=== PATIENT | female | born 1965 | race Caucasian/White ===

== ENCOUNTER 2020-04-27 07:45 | Outpatient (CLI) | payer BC, SELFPAY ==
--- NOTE | ~2020-04-27 | MM_ITS ---
EXAMINATION: MM screening fadia BI w andrew HISTORY: Screening TECHNIQUE: Craniocaudal and mediolateral oblique 3-D tomosynthesis images were obtained and synthetic 2-D images were generated. CAD analysis was submitted and interpreted. COMPARISON: Comparison to multiple prior studies sequentially, with oldest reviewed study dated 11/25. BREAST PARENCHYMAL COMPOSITION: There are scattered areas of fibroglandular density. FINDINGS: There is no evidence of suspicious mass, calcification, or architectural distortion to sugg est malignancy in either breast. There has been no suspicious interval change. IMPRESSION: 1. No mammographic evidence of malignancy. 2. Recommend routine screening mammography in one year. BI-RADS Category 1: Negative Reviewed, dictated and finalized at location A. 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
== END 2020-04-27 07:46 | disposition home or self-care (01) ==
PROVIDERS: PCP Family Medicine; Visit Provider Obstetrics & Gynecology
DX: Z12.31 Encounter for screening mammogram for malignant neoplasm of breast (principal)
CPT/HCPCS: 77063; 77067

== ENCOUNTER 2020-08-02 10:21 | Emergency (ER) | payer BC, SELFPAY ==
[2020-08-02 10:29] VITALS: BP 148/84; PULSE 70; RESP 12; TEMP 36.7; O2SAT 99
--- NOTE | 2020-08-02 10:46 | ED.SKABFB ---
HPI - Skin/Abscess/Foreign Bdy General Chief complaint: Skin/Abscess/Foreign Body Stated complaint: Rash on face Source: patient and RN notes reviewed Limitations: no limitations History of Present Illness HPI narrative: The obese patient, previously mostly healthy, presents with skin eruption. Patient states she has a shorter 5-day history of pimply eruptions her right chin. Symptoms are mild, worse with scratching, unrelieved with OTC Benadryl. No fever, abscess/induration, streaking prior/other rashes currently. Related Data Home Medications Medication Instructions Recorded Confirmed clobetasol TOPICAL 08/02/20 Allergies Allergy/AdvReac Type Severity Reaction Status Date / Time No Known Allergies Verified 05/19/10 07:06 Review of Systems Review of Systems: Narrative: General/Constitutional: No weight loss,fever Eyes: N0: Redness,discharge Ears/Nose/Throat: No: Epistaxis,ear discharge Respiratory: Denies: Hemoptysis Gastrointestinal: No Vomiting, Bleeding-rectal Skin: No Lumps, REPORTS eruption Neurologic: No Focal Weakness,Sz Hematologic: Denies: Petechiae/Purpura Psychiatric: No: Suicida ideationl All Other Systems: Reviewed and Negative [facility] Past Medical History Medical History (Updated 08/02/20 @ 10:48 by Bernardo Montiel MD) Cholecystectomy planned Thyroid disease Surgical History Surgical History History of appendectomy Family History Family History Mother Family history of gallbladder disease Family history of chronic obstructive pulmonary disease Family history of diabetes mellitus in first degree relative Family history of throat cancer Family history of thyroid disease Asthma Father Family history of diabetes mellitus in first degree relative Acute myocardial infarction Sibling Family history of thyroid disease Asthma Social History Social History Smoking status: Former smoker Smoking end date: 02/25/91 Alcohol intake: never Comments At time of signature, agree with nursing past medical, surgical, social and family history. There is no relevant family history pertinent to the presenting complaint Exam Narrative: Exam Narrative: General Appearance: Well appearing, No distress, Conjunctiva clear Mouth/Throat: Normal appearing, Normal lips, Supple Skin: Warm, Dry, discrete papulovesicular eruption on the right cheek Respiratory: Airway patent, No respiratory distress Musculoskeletal: Full ROM Neurological: A&O x3, CN II-X intact Psychiatric: Normal mood, Normal affect Course Vital Signs Vital signs: Vital Signs Temperature 98.0 F 08/02/20 10:29 Pulse Rate 70 08/02/20 10:29 Respiratory Rate 12 08/02/20 10:29 Blood Pressure 148/84 H 08/02/20 10:29 Pulse Oximetry 99 08/02/20 10:29 Temperature 98.0 F 08/02/20 10:29 Pulse Rate 70 08/02/20 10:29 Respiratory Rate 12 08/02/20 10:29 Blood Pressure 148/84 H 08/02/20 10:29 Pulse Oximetry 99 08/02/20 10:29 Discharge Plan Discharge Clinical Impression: Folliculitis Patient Disposition: Home, Self-Care Condition: Stable Instructions: Antibiotic Form, Folliculitis (ED) Additional Instructions: Keep photo log of area, return if worsens Take clindamycin with food, stop if diarrhea occurs Prescriptions: New clindamycin HCl 300 mg capsule 300 mg PO TID Qty: 21 RF: 0 mupirocin 2 % ointment 1 applic TOPICAL TID Qty: 30 RF: 0 No Action clobetasol 0.05 % solution TOPICAL RF: 0 levothyroxine [Synthroid] 125 mcg tablet 125 mcg PO DAILY Qty: 90 RF: 1 liothyronine [Cytomel] 5 mcg tablet 5 mcg PO DAILY Qty: 90 RF: 1 Follow-up/Referrals: Shabbir Harding MD [Primary Care Provider] -
== END 2020-08-02 10:50 | disposition home or self-care (01) ==
PROVIDERS: Emergency Provider Emergency Medicine; PCP Family Medicine
DX: L73.9 Follicular disorder, unspecified (principal); Z87.891 Personal history of nicotine dependence; E03.9 Hypothyroidism, unspecified
CPT/HCPCS: 99213; G0463

== ENCOUNTER 2020-12-31 11:55 | Emergency (ER) | payer BC, SELFPAY ==
[2020-12-31 12:08] VITALS: BP 158/89; PULSE 65; RESP 16; TEMP 36.3; O2SAT 99
--- NOTE | 2020-12-31 12:38 | ED.EXTPRO ---
HPI - Extremity Problem General Chief complaint: Extremity Problem,Nontraumatic Stated complaint: WOUND TO R LEG Time Seen by Provider: 12/31/20 12:36 Source: patient and RN notes reviewed Mode of arrival: ambulatory Limitations: no limitations History of Present Illness HPI Narrative: 55-year-old female presents concern for a red, itchy area on her right lower leg. She is not sure when it started, reports it worsened with itching today. Reports she recently had cellulitis on her face, was concerned for cellulitis on her leg. She reports she has been driving [place] the [place] in [place] [employer] and so her legs have been in a dependent position and have had intermittent bilateral lower leg edema. She denies any new calf pain, redness, swelling. Reports she has a large painful varicose vein in the right leg and recently had work-up for DVT which was negative. Reports she used cortisone cream 1 time on the area. MD Complaint: extremity swelling Related Data Allergies Allergy/AdvReac Type Severity Reaction Status Date / Time No Known Allergies Verified 12/31/20 12:09 Review of Systems Review of Systems: CONSTITUTIONAL: Denies malaise, chills, sweats, or fever. CARDIOVASCULAR: Denies chest pain, palpitations, or edema. RESPIRATORY: Denies cough or dyspnea. SKIN: Reports red, itchy patch of skin on the right lower leg MUSCULOSKELETAL: Denies musculoskeletal pain or myalgia. All systems reviewed & are unremarkable except as noted in HPI and below PMFSH Past Medical History Medical History (Updated 12/31/20 @ 12:45 by Ara Rice NP) Cholecystectomy planned Thyroid disease Surgical History Surgical History History of appendectomy Family History Family History Mother Family history of gallbladder disease Family history of chronic obstructive pulmonary disease Family history of diabetes mellitus in first degree relative Family history of throat cancer Family history of thyroid disease Asthma Father Family history of diabetes mellitus in first degree relative Acute myocardial infarction Sibling Family history of thyroid disease Asthma Social History Social History Smoking status: Former smoker Smoking end date: 02/25/91 Alcohol intake: never Comments At time of signature, agree with nursing past medical, surgical, social and family history. There is no relevant family history pertinent to the presenting complaint Exam Narrative: GENERAL: Well-appearing, well-nourished, and in no acute distress. HEAD: Normocephalic, atraumatic. EYES: PERRLA, conjunctivae clear, and EOMI. ENT: Mucous membranes moist. Oropharynx without edema, erythema or lesions. NECK: Supple. No lymphadenopathy CHEST: Clear to auscultation. No respiratory distress. HEART: Regular rate and rhythm. SKIN: Warm, dry. 7cm x 4cm patch of erythematous plaque, nontender without induration, no open skin, no drainage NEURO: Alert and oriented x3. PSYCH: Normal mood and affect Course Course Emergency Course: Patient is aware of diagnosis, understands and agrees to treatment plan. Anticipatory guidance given. Patient agrees to follow-up as directed and is aware of reasons to seek care at the emergency department. Portions of this record may have been created with voice recognition software Vital Signs Vital signs: Vital Signs Temperature 97.4 F L 12/31/20 12:08 Pulse Rate 65 12/31/20 12:08 Respiratory Rate 16 12/31/20 12:08 Blood Pressure 158/89 H 12/31/20 12:08 Pulse Oximetry 99 12/31/20 12:08 Temperature 97.4 F L 12/31/20 12:08 Pulse Rate 65 12/31/20 12:08 Respiratory Rate 16 12/31/20 12:08 Blood Pressure 158/89 H 12/31/20 12:08 Pulse Oximetry 99 12/31/20 12:08 Reviewed. MDM - Extremity (Nontraumatic) MDM Narrative Medical dec
== END 2020-12-31 12:51 | disposition home or self-care (01) ==
PROVIDERS: Emergency Provider Nurse Practitioner; PCP Family Medicine
DX: B35.4 Tinea corporis (principal); Z87.891 Personal history of nicotine dependence; E07.9 Disorder of thyroid, unspecified
CPT/HCPCS: 99213; G0463

== ENCOUNTER 2021-06-13 07:48 | Outpatient (CLI) | payer BC, SELFPAY ==
--- NOTE | ~2021-06-13 | MM_ITS ---
EXAMINATION: MM screening fadia BI w andrew HISTORY: Screening mammogram TECHNIQUE: Craniocaudal and mediolateral oblique 3-D tomosynthesis images were obtained and synthetic 2-D images were generated. CAD analysis was submitted and interpreted. COMPARISON: 05/14/2020, bilateral screening mammogram examinations BREAST PARENCHYMAL COMPOSITION: The breasts are almost entirely fatty. FINDINGS: There is no evidence of suspicious mass, calcification, or architectural distortion to sugg est malignancy in either breast. There has been no suspicious interval change. IMPRESSION: 1. No mammographic evidence of malignancy. 2. Recommend routine screening mammography in one year. BI-RADS Category 1: Negative Reviewed, dictated and finalized at location A.
== END 2021-06-13 07:49 | disposition home or self-care (01) ==
PROVIDERS: PCP Family Medicine; Visit Provider Obstetrics & Gynecology
DX: Z12.31 Encounter for screening mammogram for malignant neoplasm of breast (principal)
CPT/HCPCS: 77063; 77067

== ENCOUNTER 2021-11-13 01:32 | Day surgery (SDC) | payer BC, SELFPAY ==
[2021-10-26 13:49] VITALS: BMI 47.7
--- NOTE | 2021-11-10 14:35 | PM.HPGS ---
History of Present Illness History of Present Illness Consent: Risks, benefits, and alternatives have been discussed and questions answered. Patient agrees to proceed with procedure. Chief complaint: neoplasm screening Narrative: Abimbola Gómez is a 56 year old female Referred for colon cancer screening. Review of Systems Review of Systems: All systems reviewed & are unremarkable except as noted in HPI and below PMFSH Past Medical History Medical History Cholecystectomy planned Thyroid disease Surgical History Surgical History History of appendectomy Family History Family History Mother Family history of gallbladder disease Family history of chronic obstructive pulmonary disease Family history of diabetes mellitus in first degree relative Family history of throat cancer Family history of thyroid disease Asthma Father Family history of diabetes mellitus in first degree relative Acute myocardial infarction Sibling Family history of thyroid disease Asthma Social History Social History Smoking packs per day: 1 Smoking cigarettes per day: 20.0 Years smoked: 10 Smoking pack-years: 10.00 Smoking status: Former smoker Tobacco type: cigarettes Second hand tobacco smoke exposure: No Smoking end date: 02/25/91 Alcohol intake: never Substance use: never Substance use type: does not use Living arrangements: with family Gender identity (if verbalized by the patient): Female Sexual Orientation (if Verbalized by the Patient): Straight or Heterosexual Spiritual care concerns: No Meds Home Medications and Allergies Home Medications Medication Instructions Recorded Confirmed Type clotrimazole-betamethasone 1 1 applic topical BID 4 weeks #45 12/31/20 10/26/21 Rx %-0.05 % topical cream grams liothyronine 5 mcg tablet (Cytomel) 5 mcg PO DAILY #90 tabs 06/05/21 10/26/21 Rx levothyroxine 112 mcg tablet 112 mcg PO DAILY 90 days #90 tabs 06/28/21 10/26/21 Rx Allergies Allergy/AdvReac Type Severity Reaction Status Date / Time No Known Allergies Verified 11/13/21 09:54 Exam Const: General: alert Nutritional Appearance: obese Orientation/consciousness: patient oriented x3 Resp: Auscultation: clear to auscultation bilaterally Cardio: Rhythm: regular rhythm GI: Inspection: obesity GI Palp: Yes Soft to palpation and No Tenderness to palpation present (GI) Neuro: General: patient oriented x3 Assessment and Plan Assessment and plan (1) Colon cancer screening: Code(s): Z12.11 - Encounter for screening for malignant neoplasm of colon Status: Acute Assessment and Plan: Colonoscopy with possible biopsy or polypectomy or cautery or injection of substances.
[2021-11-13 09:55] VITALS: BP 140/97; PULSE 82; RESP 22; TEMP 36.3; O2SAT 97; BMI 45.2
[2021-11-13] MEDS: LACTATED RINGERS 1,000 ML 150 ML IV CONT (09:58)
--- NOTE | 2021-11-13 10:42 | WPDANESEPPF ---
Anes - Initial Pre Proc Eval Procedure: Operation Date: 11/13/21 11:00 Proposed Procedures p Screening Colonoscopy - Matty Kraus MD Date/Time: 11/13/21 10:42 Surgeon: Matty Kraus MD Pre Op Diagnosis: neoplasm screening Patient Data Age: 56 Gender: F Height: 1.68 m Weight: 127.2 kg Last Vital Signs Temp 97.4 F L 11/13/21 09:55 Pulse 82 11/13/21 09:55 Resp 22 H 11/13/21 09:55 BP 140/97 H 11/13/21 09:55 Pulse Ox 97 11/13/21 09:55 O2 Del Method Room Air 11/13/21 09:55 Allergies Allergy/AdvReac Type Severity Reaction Status Date / Time No Known Allergies Verified 11/13/21 09:54 Home Medications Medication Instructions Recorded Confirmed Type clotrimazole-betamethasone 1 1 applic topical BID 4 weeks #45 12/31/20 10/26/21 Rx %-0.05 % topical cream grams liothyronine 5 mcg tablet (Cytomel) 5 mcg PO DAILY #90 tabs 06/05/21 10/26/21 Rx levothyroxine 112 mcg tablet 112 mcg PO DAILY 90 days #90 tabs 06/28/21 10/26/21 Rx Patient hx anesthesia problems: none Family hx anesthesia problems: none Results Review: All pre-operative results and documents have been reviewed as part of the pre-operative evaluation. [facility] Past Medical History Medical History Cholecystectomy planned Thyroid disease Surgical History Surgical History History of appendectomy Family History Family History Mother Family history of gallbladder disease Family history of chronic obstructive pulmonary disease Family history of diabetes mellitus in first degree relative Family history of throat cancer Family history of thyroid disease Asthma Father Family history of diabetes mellitus in first degree relative Acute myocardial infarction Sibling Family history of thyroid disease Asthma Social History Social History Smoking packs per day: 1 Smoking cigarettes per day: 20.0 Years smoked: 10 Smoking pack-years: 10.00 Smoking status: Former smoker Tobacco type: cigarettes Second hand tobacco smoke exposure: No Smoking end date: 02/25/91 Alcohol intake: never Substance use: never Substance use type: does not use Living arrangements: with family Gender identity (if verbalized by the patient): Female Sexual Orientation (if Verbalized by the Patient): Straight or Heterosexual Spiritual care concerns: No Anes - Eval Final PreProcedure Day of Procedure 11/13/21 10:42 Patient weight: morbidly obese Heart: regular rate and rhythm Lungs: clear to auscultation Airway: Mallampati scale class II Neurological: alert and oriented Last oral intake: >/= 8 hours ASA classification: III Emergent: no Anesthetic plan: proceed Anesthesia type and monitoring: general GIVS and standard monitoring Results Review: All pre-operative results and documents have been reviewed as part of the pre-operative evaluation. Informed Consent: The patient's anesthetic plan and its attendant risks and benefits were discussed with the patient/family/POA. Questions were solicited and answers provided to the satisfaction of the patient/family/POA.
[2021-11-13 11:11] VITALS: BP 127/76; PULSE 67; RESP 18; O2SAT 99
[2021-11-13 11:21] VITALS: BP 155/96; PULSE 59; RESP 15; O2SAT 98
[2021-11-13 11:31] VITALS: BP 167/96; PULSE 58; RESP 24; O2SAT 100
== END 2021-11-13 11:35 | disposition home or self-care (01) ==
PROVIDERS: PCP Family Medicine; Visit Provider Internal Medicine Gastroenterology
PROC: 0DJD8ZZ Inspection of Lower Intestinal Tract, Via Natural or Artificial Opening Endoscopic (ICD-10-PCS; CPT 45378; principal; 2021-11-13 11:00)
DX: Z12.11 Encounter for screening for malignant neoplasm of colon (principal); E03.9 Hypothyroidism, unspecified; Z87.891 Personal history of nicotine dependence; E66.01 Morbid (severe) obesity due to excess calories; Z68.42 Body mass index [BMI] 45.0-49.9, adult
CPT/HCPCS: 45378; J2704; J7120

== ENCOUNTER 2022-09-13 07:58 | Outpatient (CLI) | payer BC, SELFPAY ==
--- NOTE | ~2022-09-13 | MM_ITS ---
EXAMINATION: MM screening fadia BI w andrew HISTORY: Screening TECHNIQUE: Craniocaudal and mediolateral oblique 3-D tomosynthesis images were obtained and synthetic 2-D images were generated. CAD analysis was submitted and interpreted. COMPARISON: Comparison to multiple prior studies sequentially, with oldest reviewed study dated 06/07. BREAST PARENCHYMAL COMPOSITION: The breasts are almost entirely fatty. FINDINGS: There is no evidence of suspicious mass, calcification, or architectural distortion to sugg est malignancy in either breast. There has been no suspicious interval change. IMPRESSION: 1. No mammographic evidence of malignancy. 2. Recommend routine screening mammography in one year. BI-RADS Category 1: Negative Reviewed, dictated and finalized at location A.
== END 2022-09-13 07:59 | disposition home or self-care (01) ==
PROVIDERS: PCP Family Medicine; Visit Provider Obstetrics & Gynecology
DX: Z12.31 Encounter for screening mammogram for malignant neoplasm of breast (principal)
CPT/HCPCS: 77063; 77067

== ENCOUNTER 2023-05-01 15:33 | Outpatient (CLI) | payer BC, SELFPAY ==
--- NOTE | ~2023-05-01 | US_ITS ---
EXAMINATION: US thyroid DATE: 05/01/2023 16:27 INDICATION: Dysphagia, unspecified. Hypothyroidism. TECHNIQUE: Multiple ultrasound images of the thyroid were obtained. COMPARISON: None. FINDINGS: The right thyroid lobe measures 4.8 x 1.6 x 1.6 cm. The left thyroid lobe measures 3.6 x 1.2 x 1.3 c m. The thyroid demonstrates heterogeneous hypoechogenicity. Vascularity is increased. In the left th yroid lobe, there is a 10 mm solid, hyperechoic, wider than tall nodule with ill-defined margin witho ut echogenic foci (TI-RADS TR3). IMPRESSION: 1. Heterogeneous, hypervascular thyroid, likely chronic lymphocytic (Siomara) thyroiditis. 2. Small thyroid nodule, likely not clinically significant. No follow-up is needed. Reviewed, dictated and finalized at location E. NNER IMPRESSION: 1. Heterogeneous, hypervascular thyroid, likely chronic lymphocytic (Siomara) thyroiditis. 2. Small thyroid nodule, likely not clinically significant. No follow-up is nee ded.
== END 2023-05-01 15:34 | disposition home or self-care (01) ==
PROVIDERS: PCP Family Medicine; Visit Provider Nurse Practitioner Family
DX: R13.10 Dysphagia, unspecified (principal)
CPT/HCPCS: 76536

== ENCOUNTER 2023-09-16 07:20 | Outpatient (CLI) | payer BC, SELFPAY ==
--- NOTE | ~2023-09-16 | MM_ITS ---
EXAMINATION: MM screening fadia BI w andrew HISTORY: Screening TECHNIQUE: Craniocaudal and mediolateral oblique 3-D tomosynthesis images were obtained and synthetic 2-D images were generated. CAD analysis was submitted and interpreted. COMPARISON: Comparison to multiple prior studies sequentially, with oldest reviewed study dated 06/07. BREAST PARENCHYMAL COMPOSITION: Not Dense: Breast are almost entirely fatty. FINDINGS: There is no evidence of suspicious mass, calcification, or architectural distortion to sugg est malignancy in either breast. There has been no suspicious interval change. IMPRESSION: 1. No mammographic evidence of malignancy. 2. Recommend routine screening mammography in one year. BI-RADS Category 1: Negative Reviewed, dictated and finalized at location B.
== END 2023-09-16 07:21 | disposition home or self-care (01) ==
LOC: ANHIMG 07:24
PROVIDERS: PCP Family Medicine; Visit Provider Obstetrics & Gynecology
DX: Z12.31 Encounter for screening mammogram for malignant neoplasm of breast (principal)
CPT/HCPCS: 77063; 77067

== ENCOUNTER 2024-09-17 07:24 | Outpatient (CLI) | payer BC, SELFPAY ==
--- NOTE | ~2024-09-17 | MM_ITS ---
EXAMINATION: MM screening fadia BI w andrew HISTORY: Screening TECHNIQUE: Craniocaudal and mediolateral oblique 3-D tomosynthesis images were obtained and synthetic 2-D images were generated. CAD analysis was submitted and interpreted. COMPARISON: Comparison to multiple prior studies sequentially, with oldest reviewed study dated 06/07. BREAST PARENCHYMAL COMPOSITION: The breasts are almost entirely fatty. FINDINGS: There is no evidence of suspicious mass, calcification, or architectural distortion to sug gest malignancy in either breast. IMPRESSION: 1. No mammographic evidence of malignancy. 2. Recommend routine screening mammography in one year. BI-RADS Category 1: Negative Reviewed, dictated and finalized at location B.
--- OUTSIDE RECORDS SUMMARY | 2024-09-17 07:31 | XMS_ITS | Referral Summary ---
Author Organization [facility] [place] [facility] Address [address] [place] [address] Care Team Providers Care Solderer Production Line Name Role Phone Shabbir Harding MD Primary Care Provider Maurilio Domínguez MD Unavailable [phone] Allergies No known active allergies Medications levothyroxine (Synthroid) 125 mcg tablet Take 125 mcg by mouth daily 7 Active liothyronine (CYTOMEL) 5 mcg tablet Take 5 mcg by mouth daily 6 Active triamcinolone (KENALOG) 0.1 % cream Apply topically 2 (two) times a day 0 Active clobetasoL (TEMOVATE) 0.05 % external solution APPLY TO SCALP TWICE DAILY UP TO 4 WEEKS. DO NOT APPLY TO FACE GROIN OR ARMPITS. STOP FOR 2 WEEKS BEFORE RESTARTING. 1 Active Active Problems Problem Noted Date Diagnosed Date Varicose veins of right lower extremity with francisco n 04/21/2020 Assessment & Plan (04/27/2020 2:05 PM SALES REPRESENTATIVE TRAINEE): Patient has isolated varicosity right calf. No indication for further workup surgical intervention recommended continued exercise, weight loss, leg elevation and knee-high compression therapy. Follow-up with me on a p.r.n. basis Hypothyroidism 04/20/2020 Assessment & Plan (04/21/2020 8:55 AM SALES REPRESENTATIVE TRAINEE): Controlled. Continue current medical therapy Yeast infection 09/04/2019 Lichen sclerosus of female genitalia 10/29/2018 Resolved Problems Problem Noted Date Diagnosed Date Resolved Date Lichen sclerosus 04/20/2020 04/20/2020 Social History Tobacco Use Types Packs/Day Years Used Date Smoking Tobacco: Former Personal Safety Answer Date Recorded Getting School Help Needed Not on file 05/10 Comments Unknown Sex and Gender Information Value Date Recorded Sex Assigned at Not on file Legal Sex Female 7:24 AM SALES REPRESENTATIVE TRAINEE Gender Identity Not on file Sexual Orientation Not on file Last Filed Vital Signs Vital Sign Reading Time Taken Comments Blood Pressure 169/95 04/21/2020 8:25 AM SALES REPRESENTATIVE TRAINEE Pulse 60 04/21/2020 8:25 AM SALES REPRESENTATIVE TRAINEE Temperature - - Respiratory Rate - - Oxygen Saturation - - Inhaled Oxygen Concentration - - Weight 140.6 kg (310 lb) 04/21/2020 8:25 AM SALES REPRESENTATIVE TRAINEE Height 167.6 cm (5' 6) 04/21/2020 8:25 AM SALES REPRESENTATIVE TRAINEE Body Mass Index 50.04 04/21/2020 8:25 AM SALES REPRESENTATIVE TRAINEE Plan of Treatment Not on file Insurance [facility] Care Teams Solderer Production Line Relationship Specialty Start Date End Date Shabbir Harding MD [address] [place] [address] PCP - General Family Medicine 04/21/20 Maurilio Domínguez MD [address] [facility] [address] [place] [address] Consulting Physician Obstetrics and Gynecology 04/21/20
--- OUTSIDE RECORDS SUMMARY | 2024-09-17 07:31 | XMS_ITS | Encounter Summary ---
Author Organization [facility] Address [address] [place] [address] Care Team Providers Care Signal Maintainer Helper Name Role Phone Unavailable Primary Care Provider Unavailabl e Encounter Details Date Type Department Care Team (Latest Contact Info) Description 04/22/1998 Outpatient Historical [facility] Antonio Khan V., PhD [address] [place] [address] Intracranial injury of other and unspecified nature, without mention of open intracranial wound, brief (less than 1 hour) loss of consciousness (Primary Dx) Social History Tobacco Use Types Packs/Day Years Used Date Smoking Tobacco: Never Assessed Comments Unknown Sex and Gender Information Value Date Recorded Sex Assigned at Not on file Legal Sex Female 3:36 AM FIRST PRESS OPERATOR Gender Identity Not on file Sexual Orientation Not on file documented as of this encounter Plan of Treatment Not on file documented as of this encounter Visit Diagnoses Diagnosis Intracranial injury of other and unspecified nature, without mention of open intracranial wound, brief (less than 1 hour) loss of consciousness- Primary documented in this encounter
--- OUTSIDE RECORDS SUMMARY | 2024-09-17 07:31 | XMS_ITS | Continuity of Care Document ---
Author Organization [facility] Address [address] [place] [address] Phone Care Team Providers Care Supervisor Assembling Name Role Phone Jackson OD, Alejandro Unavailable Unavailable Procedures Procedure Date Contact Lens Check Contact Lens Check Contact Lens Check Eye Exam, New Patient Refraction Advance Directives Directive Yes / No Effective Date File Name No Information Encounters Encounter Description Practice Location Reason(s) For Visit Diagnoses Date Provider Providers Copied on Encounter [facility], [address] [place] [address] [address], [place], [place], [id number], tel:[phone] [facility] No Information Aug-3 0-201 0 Jackson OD Alejandro. [address], [place], [place], [facility], [place]. tel:[phone] [facility], [address] [place] [address] [address], [place], [place], [id number], tel:[phone] [facility] No Information Aug-2 3-201 0 Jackson OD Alejandro. [address], [place], [address], [place]. tel:[phone] [facility], [address] [place] [address] [address], [place], [place], [id number], tel:[phone] [facility] No Information Aug-0 2-201 0 Jackson OD Alejandro. [address], [place], [address], [place]. tel:[phone] [facility], [address], [place], [place], [id number], [place] tel:[phone] [facility] No Information 0-201 0 Jackson OD Alejandro. [address], [place], [address], [place]. tel:[phone] Family History Family Member Type Diagnosis Age At Onset No Information Payers Payer name Insurance type Covered democrat ID Authoriza tion(s) No Information Social History Type Description Quantity Date Captured Comments Sex Female Smoking Status No Information Chief Complaint And Reason For Visit No Information Reason For Referral Reason For Referral No Information History Of Present Illness Encounter Date Complaint History Of Prese nt Illness No Information Functional Status Date Functional Assessmen t No Information Instructions Date Instruction Additional Infor mation No Information Assessments Type Assessment Date No Information Patient Care Teams Name Effective Dates (start - stop) Status Members No Information
--- OUTSIDE RECORDS SUMMARY | 2024-09-17 07:31 | XMS_ITS | Clinical Summary ---
Author Organization [facility] Address [address] [place] [address] Care Team Providers Care Trench Digging Machine Operator Name Role Phone Shabbir Harding MD Primary Care Provider [phone] Maurilio Domínguez MD Unavailable Source Comments [facility],non-owned Affiliates and Associated Physician Practices is amultiple site organization consisting of ambulatory clinics and hospital sitesin [place], [place], [place] and [place]. This disclosure is being madepursuant to the Care Everywhere program and may not contain all information available regarding this patient. Last updated 17.[facility] Allergies No known active allergies Medications * Be aware that medications may not be up to date on this document. Alwaysverify current medications with the patient. liothyronine (CYTOMEL) 5 MCG tablet Take 1 (one) tablet by mouth once daily 02/25/2016 Active nystatin-triamc inolone (MYCOLOG) 148730-3.1 UNIT/GM-% cream 11/30/2018 Act andrez levothyroxine (Synthroid) 112 MCG tablet 12/11/2022 Active triamcinolone acetonide (Kenalog) 0.1 % creamIndication s:Lichen sclerosus of female genitalia Apply to affected area 2 times daily 80 g 3 01/02/2024 Active Active Problems Problem Noted Date Diagnosed Date Yeast infection 09/04/2019 Lichen sclerosus of female genitalia 10/29/2018 Encounters Date Type Department Care Team Description 08/24/2024 2:00 PM CDT Office Visit [facility] - BAND 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 [address] Maurilio Domínguez MD Lichen sclerosus of female genitalia (Primary Dx); Yeast infection from Last 3 Months Family History Medical History Relation Name Comments Cancer - Ovarian Maternal Aunt Relation Name Status Comments Maternal Aunt Social History Tobacco Use Types Packs/Day Years Used Date Smoking Tobacco: Former Smokeless Tobacco: Never Tobacco Cessation:Counseling Given: Not Answered Alcohol Use Standard Drinks/Week Comments Yes 0 (1 standard drink = 0.6 oz pur e alcohol) rare PHQ-2 Answer Date Recorded Patient Health Questionnaire-2 Score 0 08/19/2024 Comments No Sex and Gender Information Value Date Recorded Sex Assigned at Not on file Legal Sex Female 6:56 AM FISH GRADER Gender Identity Not on file Sexual Orientation Not on file Last Filed Vital Signs Vital Sign Reading Time Taken Comments Blood Pressure 132/80 08/24/2024 1:52 PM CDT Pulse - - Temperature - - Respiratory Rate - - Oxygen Saturation - - Inhaled Oxygen Concentration - - Weight 143.3 kg (316 lb) 08/24/2024 1:52 PM CDT Height 165.1 cm (5' 5) 08/24/2024 1:52 PM CDT Body Mass Index 52.59 08/24/2024 1:52 PM CDT Plan of Treatment Upcoming Encounters Date Type Department Care Team (Late st Contact Info) Description 02/23/2025 1:00 PM FISH GRADER Office Visit [facility] - [facility] [address] [place] [phone] Maurilio Domínguez MD [address] [place] [phone] Health Maintenance Due Date Last Done Comments COLOGUARD (AGES 45-75) - COLON CA SCREENING 1964 COLON MONITORING 1964 COLONOSCOPY - COLON CA SCREENING 1964 CT COLONOGRAPHY - COLON CA SCREENING 1964 Colorectal Cancer Screening 1964 FIT - COLON CA SCREENING 1964 FLEX SIG - COLON CA SCREENING 1964 LIPID TESTING 1964 HIV SCREENING 01/20/1979 HEPATITIS C SCREENING 01/16/1982 DTAP/TDAP/TD VACCINES (1 - Tdap) 01/20/1983 PNEUMOCOCCAL VACCINE 50+ (1 of 1 - PCV) 01/20/2014 ZOSTER VACCINE (1 of 2) 01/20/2014 SCREENING FOR DIABETES 06/14/2017 COVID-19 VACCINE (1 - 2023- season) 2023 Respiratory Syncytial Virus (RSV) Vaccine Pt: or over 60 yrs (1 - Risk 60-74 years 1-dose series) 2024 INFLUENZA VACCINE (#1) 2024 MAMMOGRAM 09/15/2025 09/16/2023, 08/26, 06/13/2021, Additional history exists PAP with HPV 01/01/2029 01/02/2024, 11/25, 11/23/2021, Additional history exists DEPRESSION SCREENING Completed 08/24/2024, 06/11/2023, 06/06/2022, Additional history exists HEPATITIS B VACCINE Aged Out No longe r eligible based on patient's age to complete this topic HIB VACCINE Aged Out No longer eligi ble based on patient's age to complete this topic HPV VACCINE Aged Out No longer eligi ble based on patient's age to complete this topic MENINGOCOCCAL (Group B) VACCINE SHARED DECISION-MAKING Aged Out No longer eligible based on patient's age to complete this topic MENINGOCOCCAL GROUPS A/C/Y/W VACCINE Aged Out No longer eligible based on patient's age to complete this topic Procedures Procedure Name Priority Date/Time Associated Diagnosis Comments PAP IG LB+HPV APTIMA Routine 01/02/2024 11:08 AM FISH GRADER Well woman exam MAMMO BILAT SCREENING Routine 09/16/2023 Well woman exam from Last 3 Months or Most Recently Relevant to Health Maintenance Results * PAP IG LB+HPV APTIMA (01/02/2024 11:08 AM FISH GRADER) Diagnosis Comment [facility] ACCOUNT BILL Comment: NEGATIVE FOR INTRAEPITHELIAL LESION OR MALIGNANCY. CELLULAR CHANGES ASSOCIATED WITH ATROPHY AND INFLAMMATION ARE PRESENT. Specimen Adequacy Comment [facility] ACCOUNT BILL Comment: Satisfactory for evaluation. Endocervical component may not be distinguished in cases of atrophy. Clinician Provided ICD10 Comment [facility] ACCOUNT BILL Comment:[id number] Performed by Comment [facility] ACCOUNT BILL Comment:Ori Teresa, [facility] otechnologist (ASCP) Comment . [facility] ACCOUNT BILL Note Comment [facility] ACCOUNT BILL Comment: The Pap smear is a screening test designed to aid in the detection of premalignant and malignant conditions of the uterine cervix. It is not a diagnostic procedure and should not be used as the sole means of detecting cervical cancer. Both false-positive and false-negative reports do occur. IGLBP CPT Code Automation CANCELED [facility] ACCOUNT BILL Comment: The Thin Prep(R) Certified Juvenile Probation Officer was unable to read this specimen. Therefore a manual review was performed. Result canceled by the ancillary. Human papillomavirus Aptima Negative Negative [facility] ACCOUNT BILL Comment: This nucleic acid amplification test detects fourteen high-risk HPV types (16,18,31,33,35,39,45,51,52,56,58,59,66,68) without differentiation. Pathology/Cytolog y PART OF UTERINE CERVIX / Unknown 01/02/2024 11:08 AM FISH GRADER 01/02/2024 Comment:Cervix Release to [facility] Narrative [facility] ACCOUNT BILL - 01/09/2024 1:10 PM FISH GRADER Performed at: 01 - [address] [id number] Improvement Director: Klaudia Milton MD, Phone: [phone] Performed at: 02 - [address] [id number] Improvement Director: Klaudia Milton MD, Phone: [phone] Specimen Comment: [id number] Specimen Comment: No. of containers..01 ThinPrep Vial us Maurilio Domínguez MD LAB - PATHOLOGY/CYTOLOGY OR DERABLES Edited Result - Final [facility] ACCOUNT BILL [address] [place] [address] * MAMMO BILAT SCREENING (09/16/2023) Anatomical Region Laterality Modality Breast Bilateral Mammography 09/16/2023 us Maurilio Domínguez MD MAMMO ORDERABLES Final Resu lt from Last 3 Months or Most Recently Relevant to Health Maintenance Insurance ANTHEM Care Teams Trench Digging Machine Operator Relationship Specialty Start Date End Date Shabbir Harding MD [address] [place] [address] PCP - General Family Medicine 03/23/16 Maurilio Domínguez MD [address] [facility] [address] [place] [address] Obstetrics and Gynecology 11/10/20
--- OUTSIDE RECORDS SUMMARY | 2024-09-17 07:31 | XMS_ITS | Clinical Summary ---
Author Organization [facility] Address [address] [place] [address] Care Team Providers Care Legal Executive Assistant Name Role Phone Shabbir Harding MD Primary Care Provider Maurliio Domínguez MD Unavailable [phone] Allergies No known active allergies Medications levothyroxine [...] 04/21/2020 Assessment & Plan (04/27/2020 2:05 PM UPLANDS DIVISION DIRECTOR): Patient has isolated varicosity right calf. No indication for further workup surgical intervention recommended continued exercise, weight loss, leg elevation and knee-high compression therapy. Follow-up with me on a p.r.n. basis Hypothyroidism 04/20/2020 Assessment & Plan (04/21/2020 8:55 AM UPLANDS DIVISION DIRECTOR): Controlled. Continue current medical therapy Yeast infection 09/04/2019 Lichen sclerosus of female genitalia 10/29/2018 Resolved Problems Problem Noted Date Diagnosed Date Resolved Date Lichen sclerosus 04/20/2020 04/20/2020 Surgical History Surgery Date Site/Laterality Comments APPENDECTOMY SECTION TUBAL LIGATION Medical History Medical History Date Comments Hypothyroidism Family History Medical History Relation Name Comments Diabetes Father Ovarian cancer Mother Throat cancer Mother Relation Name Status Comments Father Mother Social History Tobacco Use Types Packs/Day Years Used Date Smoking Tobacco: Former Personal Safety Answer Date Recorded Getting School Help Needed Not on file 05/10 Comments Unknown Sex and Gender Information Value Date Recorded Sex Assigned at Not on file Legal Sex Female 7:24 AM UPLANDS DIVISION DIRECTOR Gender Identity Not on file Sexual Orientation Not on file Obstetrics History Last Filed Vital Signs Vital Sign Reading Time Taken Comments Blood Pressure 169/95 04/21/2020 8:25 AM UPLANDS DIVISION DIRECTOR Pulse 60 04/21/2020 8:25 AM UPLANDS DIVISION DIRECTOR Temperature - - Respiratory Rate - - Oxygen Saturation - - Inhaled Oxygen Concentration - - Weight 140.6 kg (310 lb) 04/21/2020 8:25 AM UPLANDS DIVISION DIRECTOR Height 167.6 cm (5' 6) 04/21/2020 8:25 AM UPLANDS DIVISION DIRECTOR Body Mass Index 50.04 04/21/2020 8:25 AM UPLANDS DIVISION DIRECTOR Plan of Treatment Not on file Insurance [employer] PREFERR[employer] Care Teams Legal Executive Assistant Relationship Specialty Start Date End Date Shabbir Harding MD [address] [place] [address] PCP - General Family Medicine 04/21/20 Maurilio Domínguez MD [address] [place] [address] Consulting Physician Obstetrics and Gynecology 04/21/20
--- OUTSIDE RECORDS SUMMARY | 2024-09-17 07:31 | XMS_ITS | Encounter Summary ---
Author Organization [facility] Address 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
--- OUTSIDE RECORDS SUMMARY | 2024-09-17 07:31 | XMS_ITS | Clinical Summary ---
Author Organization [facility] Address [address] [place] [address] Phone Care Team Providers Care Steam And Gas Turbines Assembler Name Role Phone Unavailable Primary Care Provider Unavailabl e Social History Tobacco Use Types Packs/Day Years Used Date Smoking Tobacco: Never Assessed Comments Unknown Sex and Gender Information Value Date Recorded Sex Assigned at Not on file Legal Sex Female 3:36 AM PICTURE FRAME MAKER Gender Identity Not on file Sexual Orientation Not on file Plan of Treatment Health Maintenance Due Date Last Done Comments DTAP/TDAP/TD VACCINES (1 - Tdap) 01/20/1983 HPV/Cotest (21-29) 01/20/1985 CERVICAL CANCER SCREENING 01/20/1994 HPV/Cotest (30-65) 01/20/1994 PAP SMEAR 01/20/1994 BREAST CANCER SCREENING 2004 COLORECTAL SCREENING 01/20/2009 Colorectal Cancer Screening 01/20/2009 FIT-DNA Q 3 years 01/20/2009 FIT/FOBT Q 1 year 01/20/2009 Flex Sig/CT Colonography Q 5 years 01/20/2009 ZOSTER VACCINE (1 of 2) 01/20/2014 INFLUENZA VACCINE (#1) 2024 RSV VACCINE (60+ or ) (1 - 1-dose 75+ series) 01/20/2039 HEPATITIS B VACCINES Aged Out No long er eligible based on patient's age to complete this topic
--- OUTSIDE RECORDS SUMMARY | 2024-09-17 07:31 | XMS_ITS | Patient Health Record ---
Author Organization [facility] Address [address] [place] [address] Support Name Relationship Address Phone Abimbola Gómez Guarantor Unknown [phone] Allergies No Known Allergies Reason For Referral No Information Problems Problem Type SNOMED Code ICD Code Onset Dates Problem Status W/U Status Risk Notes Problem Hypothyroidism (11439411) Hypothyroidism, unspecified (E03.9) 0 Active confirmed Problem Menopausal and female climacteric states (N95.1) 0 Active confirmed Plan Of Treatment No Information Insurance Providers Payer Name Payer Address Payer Phone Subscriber Number Group Number Insured Name Patient Relationship to Insured Coverage Start Date Coverage End Date [place] [address] [place] [address] [id number] Abimbola Gómez Self - patient is the insured 1 Medical (General) History Surgical History Surgery Date(Month/Year) Ceasarean section; 2011-05-22 cholecystectomy; 2011-05-22 Appendectomy; 2011-05-22
== END 2024-09-17 07:25 | disposition home or self-care (01) ==
LOC: ANHIMG 07:27
PROVIDERS: PCP Family Medicine; Visit Provider Obstetrics & Gynecology
DX: Z12.31 Encounter for screening mammogram for malignant neoplasm of breast (principal)
CPT/HCPCS: 77063; 77067